=== PATIENT | male | born 1970 ===

== ENCOUNTER 2020-02-15 18:03 | Inpatient (IN) | payer MEDICAID ==
[~2020-02-15] VITALS: Ht 180.3 cm; Wt 127.4 kg
[2020-02-15 18:05] VITALS: BP 149/76; PULSE 84
--- NOTE | 2020-02-15 18:25 | NUR ---
PT IS RESTING IN HIS BED AT THIS TIME. VITAL SIGNS REMAIN STABLE UPON ADMISSION. PT DENIES PAIN OR DISCOMFORT AT THIS TIME. SOME SOB ON EXERTION. CALL LIGHT WITHIN REACH, NO FURTHER CONCERNS.
[2020-02-15] MEDS ORDERED: CORDARONE200 MG/TAB PO (18:31)
[2020-02-15] MEDS ORDERED: BUMEX 1MG TA1 MG/TA1 PO (18:32)
[2020-02-15] MEDS ORDERED: ASPIRIN 32325 MG/TAB PO (18:32)
[2020-02-15] MEDS ORDERED: COREG 3.123.125 MG/T PO (18:33)
[2020-02-15] MEDS ORDERED: GLUCOPHAGE500 MG/TAB PO (18:34)
[2020-02-15] MEDS ORDERED: FLOMAX 0.40.4 MG/CAP PO (18:35)
[2020-02-15] MEDS ORDERED: ZOCOR 10MG10 MG PO (18:36)
[2020-02-15] MEDS ORDERED: ALDACTONE50 MG PO (18:37)
[2020-02-15] MEDS ORDERED: COZAAR 50MG50 MG/TAB PO (18:42)
[2020-02-15] MEDS ORDERED: XARELTO15 MG PO (18:43)
[2020-02-15 19:53] VITALS: BP 142/68; PULSE 82; TEMP 98.6
[2020-02-15 21:28] LABS: C-REACTIVE PROTEIN 1.3 mg/dL (0.0-0.9); CREATINE KINASE 218 U/L (55-170); MAGNESIUM 2.3 mg/dL (1.6-2.3)
--- NOTE | 2020-02-15 21:29 | NUR ---
Collected UA. Pt has voided well since [facility].
--- NOTE | 2020-02-15 21:30 | NUR ---
PT ASSISTED TO CHAIR AT BEDSIDE. REPORTS HE SLEEPS IN A RECLINER AT HOME. IS ALERT AND ORIENTED X4. HAS SL TO LEFT AC WITHOUT REDNESS OR SWELLING. WEARING OXYGEN AT 1L/NC. LEFT SIDE WEAKNESS FROM OLD CVA.
[2020-02-15 21:38] LABS: TROPONIN-I < 0.012 ng/mL (0.000-0.035)
[2020-02-15 21:52] LABS: COLLECTION METHOD CLEAN CATCH
[2020-02-15 21:57] LABS: PH 6 (5-8); SQUAMOUS EPITHELIAL None Seen /hpf; URINE APPEARANCE Clear; URINE BACTERIA None Seen /hpf; URINE BILIRUBIN Negative (NEGATIVE); URINE BLOOD Negative (NEGATIVE); URINE COLOR Straw; URINE GLUCOSE Negative (NEGATIVE); URINE KETONE Negative (NEGATIVE); URINE LEUKOCYTE ESTERASE Negative (NEGATIVE); URINE NITRATE Negative (NEGATIVE); URINE PROTEIN(semi-quant) Negative (NEGATIVE); URINE RBC 0-2 /hpf
[2020-02-15 22:32] VITALS: BP 147/64; PULSE 88; TEMP 97.7
--- NOTE | 2020-02-15 22:40 | NUR ---
INITIATED PRBC TRANSFUSION AT THIS TIME. LEFT AC SITE FLUSHES WELL, NO REDNESS OR SWELLING. LEIGHA BUTT AT BEDSIDE.
[2020-02-15 22:55] VITALS: BP 122/57; PULSE 82; TEMP 98.8
[2020-02-15 23:13] VITALS: BP 148/60; PULSE 80; TEMP 98.2
[2020-02-15 23:43] VITALS: BP 138/75; PULSE 83; TEMP 98.5
[2020-02-16] VITALS (19 sets, daily range): BP systolic 117–148; BP diastolic 61–84; PULSE 66–98; TEMP 97.6–99.2
[2020-02-16 01:32] LABS: CREATINE KINASE 195 U/L (55-170)
[2020-02-16 01:46] LABS: TROPONIN-I < 0.012 ng/mL (0.000-0.035)
[2020-02-16 03:17] LABS: HEMATOCRIT 20.1 % (42.0-52.0)
[2020-02-16 03:18] LABS: HEMOGLOBIN 5.5 g/dl (13.5-18.0)
--- NOTE | 2020-02-16 03:30 | NUR ---
NOTIFIED LEIGHA BUTT OF PT'S HGB 5.5. NEW ORDER FOR ANOTHER UNIT OF PRBC'S.
--- NOTE | 2020-02-16 07:00 | NUR ---
PT SITTING UP IN RECLINER AT BEDSIDE. IS ALERT AND ORIENTED. IS NPO. USING URINAL AT BEDSIDE.
--- NOTE | 2020-02-16 08:50 | NUR ---
Patient sitting up in recliner. Alert and oriented x 3. Assessment complete. Denies pain at this time. Tele in place. Blood transfusion started per orders. Denies further needs at this time.
[2020-02-16 09:09] LABS: BASO % 0.6 % (0.0-2.0); EOS # 0.1 (0.0-0.7); EOS % 2.2 % (0-4.0); GRAN # 3.8 (1.4-6.5); GRAN % 77.2 % (42.2-75.2); LYMPH # 0.5 (1.2-3.4); LYMPH % 9.9 % (20.0-51.0); MEAN CELL VOLUME 76 fl (80.0-100.0); MEAN CORPUSCULAR HGB CONC 28 g/dl (33.0-37.0); MONO # 0.5 (0.1-0.6); MONO % 9.7 % (1.7-9.3); PLATELET COUNT 195 K/mm3 (130-400); RED BLOOD COUNT 2.53 M/mm3 (4.20-5.60); REDCELL DISTRIBUTION WIDTH-CV 17.8 % (11.5-14.5)
[2020-02-16 09:11] LABS: HEMATOCRIT 19.2 % (42.0-52.0); MEAN CORPUSCULAR HEMOGLOBIN 21 pg (27.0-31.0)
[2020-02-16 09:13] LABS: HEMOGLOBIN 5.4 g/dl (13.5-18.0)
[2020-02-16 09:15] LABS: ANION GAP 10 mmol/L (7-16); BLOOD UREA NITROGEN 13 mg/dL (9-20); CALCIUM 8.3 mg/dL (8.4-10.2); CARBON DIOXIDE 27 mmol/L (22-30); CHLORIDE 103 mmol/L (98-107); CREATININE, serum 1.08 (0.66-1.25); GLUCOSE 91 mg/dL (74-106); POTASSIUM 3.9 mmol/L (3.4-5.0); SODIUM 140 mmol/L (137-145)
[2020-02-16 09:24] LABS: CREATINE KINASE 222 U/L (55-170)
[2020-02-16 09:38] LABS: TROPONIN-I < 0.012 ng/mL (0.000-0.035)
--- NOTE | 2020-02-16 10:58 | NUR ---
MAXIMO met with the patient to discuss discharge plan. The patient lives alone in [place]. He reports independence with ADLs and has a walker. The patient's primary care provider is Inga Landon APRN at the [facility] and he receives his medications from [facility]. The patient does not have a DPOA-HC, but he was interested in completing one. The patient designated his cousin, Yue Diehl (ph#[phone]). MAXIMO and HOT KETTLE TENDERDrew, witnessed the patient's signature. MAXIMO provided the patient with the original and some copies. MAXIMO placed a copy in the patient's chart. Yue also lives in [place]. The patient plans to return home upon discharge. He is currently on 2 liters of oxygen. MAXIMO to continue to follow.
--- NOTE | 2020-02-16 11:12 | NUR ---
First visit from the bevel polisher. No needs right now.
[2020-02-16 13:02] LABS: HEMATOCRIT 20.5 % (42.0-52.0); HEMOGLOBIN 5.8 g/dl (13.5-18.0)
[2020-02-16 13:06] LABS: INR 1.5 (0.8-3.0); PROTHROMBIN TIME 17.2 SECONDS (9.7-12.8)
[2020-02-16 14:07] LABS: BILIRUBIN,DIRECT 0.2 mg/dL (0.0-0.4)
[2020-02-16 14:10] LABS: IRON,SERUM 20 ug/dL (35-150)
[2020-02-16 14:20] LABS: TOTAL IRON BINDING CAPACITY 416 ug/dL (261-462)
[2020-02-16 18:19] LABS: HEMATOCRIT 24.1 % (42.0-52.0); HEMOGLOBIN 6.9 g/dl (13.5-18.0)
--- NOTE | 2020-02-16 18:31 | NUR ---
Notified Gladys of hemoglobin
--- NOTE | 2020-02-16 19:11 | NUR ---
Patient has done well thoughout the day has been up in recliner today, napping between disturbances. Has recieved 2 units PRBC through the day. Denies further needs at this time. Reported off to manager night.
--- NOTE | 2020-02-16 21:00 | NUR ---
Pt. sitting up in chair at this time. Pt. is A&OX3, assessment complete. INT to lt. ac patent. Pt. requests a shower to night with assist. Pt. denies further needs, call light within reach.
[2020-02-16 23:19] LABS: FOLATE (FOLIC ACID) 5.9 ng/mL (7.0-31.4)
[2020-02-17] VITALS (13 sets, daily range): BP systolic 101–137; BP diastolic 50–77; PULSE 62–74; TEMP 97.4–98.6
--- NOTE | 2020-02-17 00:19 | NUR ---
Blood transfusion started at this time. Vitals stable. Pt. educated on transfusion reactions. Pt. voices understanding. Will remain with pt. for 15 minutes.
--- NOTE | 2020-02-17 00:35 | NUR ---
First 15 minutes of transfusion complete. Pt. denies any transfusion reactions. Vitals remain stable.
--- NOTE | 2020-02-17 02:44 | NUR ---
Blood transfusion complete at this time. Pt. tolerated well.
[2020-02-17 06:03] LABS: MEAN CELL VOLUME 76 fl (80.0-100.0); MEAN CORPUSCULAR HGB CONC 30 g/dl (33.0-37.0); PLATELET COUNT 194 K/mm3 (130-400); RED BLOOD COUNT 3.19 M/mm3 (4.20-5.60); REDCELL DISTRIBUTION WIDTH-CV 17.5 % (11.5-14.5)
[2020-02-17 06:13] LABS: CALCIUM 8.7 mg/dL (8.4-10.2); CREATININE, serum 1.13 (0.66-1.25); POTASSIUM 3.8 mmol/L (3.4-5.0)
[2020-02-17 06:29] LABS: HEMATOCRIT 24.1 % (42.0-52.0); HEMOGLOBIN 7.3 g/dl (13.5-18.0); MEAN CORPUSCULAR HEMOGLOBIN 23 pg (27.0-31.0)
--- NOTE | 2020-02-17 06:50 | NUR ---
Sitting up in chair watching TV. Alert and oriented x4. Denies pain. Bottom is red, no open areas noted. Patient has 2+ edema to bilat lower extremities. Skin is pale. Patient is ready to have procedure today, consent for thoracentesis on chart. Patient denies needs at this time.
--- NOTE | 2020-02-17 08:29 | NUR ---
Bc here to take patient via stretcher to endoscopy lab for thoracentesis.
--- NOTE | 2020-02-17 09:43 | NUR ---
Patient back to room from thoracentesis via stretcher. Patient requests to sit in chair as this is where he is most comfortable. Patient ambulates from stretcher, around bed, to the chair. Gait slow and steady. Patient did use walker. Provided water, broth, and jello. Bandaid to right mid back CDI. Patient denies needs at this time.
--- NOTE | 2020-02-17 10:15 | NUR ---
Patient up in room with OT. Feels well at this time. Denies needs.
[2020-02-17 11:13] LABS: PLEURAL FLUID RBC 1000 /mm3 (0-0); PLEURAL FLUID WBC 54 /mm3
[2020-02-17 11:16] LABS: PLEURAL FLUID APPEARANCE CLEAR; PLEURAL FLUID COLOR YELLOW
[2020-02-17 11:19] LABS: GLUCOSE,PLEURAL FLUID 97 mg/dL; TOTAL PROTEIN,PLEURAL FLUID 4.2 gm/dL
--- NOTE | 2020-02-17 12:36 | NUR ---
Review consent for EGD and Colonoscopy with the patient. Denies questions and signs consent. Consent placed in chart. Patient denies needs at this time.
--- NOTE | 2020-02-17 16:37 | NUR ---
Patient sitting up in chair watching TV. Denies pain. Discuss bowel prep and process. IV to left AC almost pulled all the way out. Restart IV at this time to left hand, patient tolerates without difficulty, previous IV dc'd with all intact and site covered with 2x2 and tape. Patient begins bowel prep at this time. Will call when needs to get to bathroom. Denies additional needs at this time.
--- NOTE | 2020-02-17 20:30 | NUR ---
PT UP IN RECLINER CHAIR AT BEDSIDE. IS DRINKING PREP FOR PROCEDURE TOMORROW. IS ALERT AND ORIENTED X4. HAS SL TO LEFT HAND, FLUSHES WELL AND HS MEDS GIVEN WITHOUT PROBLEM THRU THIS. IS AWARE HE WILL GET SECOND DOSE OF BOWEL PREP STARTING AT 0600.
--- NOTE | 2020-02-18 02:30 | NUR ---
PT HAS LARGE LOOSE STOOL, BOWEL PREP IS WORKING.
[2020-02-18 04:51] VITALS: BP 109/56; PULSE 70; TEMP 97.6
--- NOTE | 2020-02-18 05:52 | NUR ---
UP TO BATHROOM, LOOSE BROWN STOOL NOTED. WILL BEGIN SECOND DOSING OF BOWEL PREP AT THIS TIME.
[2020-02-18 07:26] VITALS: BP 112/59; PULSE 69; TEMP 98
[2020-02-18 08:44] LABS: MEAN CELL VOLUME 78 fl (80.0-100.0); MEAN CORPUSCULAR HGB CONC 29 g/dl (33.0-37.0); MEAN PLATELET VOLUME 11.3 fl (7.4-10.4); PLATELET COUNT 195 K/mm3 (130-400); RED BLOOD COUNT 3.24 M/mm3 (4.20-5.60); REDCELL DISTRIBUTION WIDTH-CV 18.6 % (11.5-14.5)
[2020-02-18 08:49] LABS: HEMATOCRIT 25.2 % (42.0-52.0); HEMOGLOBIN 7.3 g/dl (13.5-18.0); MEAN CORPUSCULAR HEMOGLOBIN 23 pg (27.0-31.0)
[2020-02-18 09:00] LABS: CALCIUM 8.4 mg/dL (8.4-10.2); CREATININE, serum 1.23 (0.66-1.25); POTASSIUM 3.9 mmol/L (3.4-5.0)
--- NOTE | 2020-02-18 10:39 | NUR ---
Patient alert and oriented, answers questions appropriately. See assessment. Patient consuming bowel prep at this time. No c/o at this time.
[2020-02-18 11:36] VITALS: BP 116/62; PULSE 63; TEMP 97.8
--- NOTE | 2020-02-18 15:24 | NUR ---
Patient to endo at 1515.
[2020-02-18 16:36] VITALS: BP 97/54; PULSE 67; TEMP 97.6
--- NOTE | 2020-02-18 20:30 | NUR ---
PT IN RECLINER CHAIR AT BEDSIDE. IS ALERT AND ORIENTED X4. HAS SL TO LEFT HAND, FLUSHES WELL WITH IV MEDS. LUNGS DIMINISHED THROUGHOUT. BILATERAL LOWER LEG EDEMA CONTINUES, 2-3+. VOIDING PER URINAL. HAS REDDENED COCCYX AND DISCOLORED BUTTOCKS FROM SITTING IN CHAIR. PT DOES NOT SLEEP IN A BED AT HOME EITHER. DOES REPOSITION SELF IN CHAIR AND HAS EXTRA CHAIR CUSHION IN PLACE.
[2020-02-18 20:48] VITALS: BP 104/60; PULSE 73; TEMP 98.3
[2020-02-19] VITALS (7 sets, daily range): BP systolic 101–141; BP diastolic 51–75; PULSE 67–80; TEMP 98.1–98.7
--- NOTE | 2020-02-19 04:00 | NUR ---
PT HAS REMAINED IN RECLINER THIS SHIFT. NO NEEDS AT THIS TIME.
[2020-02-19 07:25] LABS: MEAN CELL VOLUME 79 fl (80.0-100.0); MEAN CORPUSCULAR HGB CONC 29 g/dl (33.0-37.0); MEAN PLATELET VOLUME 10.8 fl (7.4-10.4); PLATELET COUNT 193 K/mm3 (130-400); RED BLOOD COUNT 3.21 M/mm3 (4.20-5.60); REDCELL DISTRIBUTION WIDTH-CV 19.2 % (11.5-14.5)
[2020-02-19 07:35] LABS: HEMATOCRIT 25.3 % (42.0-52.0); HEMOGLOBIN 7.4 g/dl (13.5-18.0); MEAN CORPUSCULAR HEMOGLOBIN 23 pg (27.0-31.0)
[2020-02-19 07:49] LABS: CALCIUM 8.2 mg/dL (8.4-10.2); CREATININE, serum 1.97 (0.66-1.25); POTASSIUM 3.7 mmol/L (3.4-5.0)
--- NOTE | 2020-02-19 14:35 | NUR ---
SW met with the patient to follow up and review d/c plan. The patient states that he is doing well. He was hopeful he could go home today. The patient reports that he has no concerns about returning home and that his cousin will transport him home. No additional needs at this time.
--- NOTE | 2020-02-19 20:45 | NUR ---
Pt. sitting up in chair at this time. Pt. is A&OX3, assessment complete. INT to lt. hand patent. Pt. denies pain or other needs, call light within reach.
[2020-02-20 04:00] VITALS: BP 119/54; PULSE 74; TEMP 99
--- NOTE | 2020-02-20 07:08 | NUR ---
Sitting up in chair watching TV. Denies pain. 3+ edema noted to bilat lower extremities. Patient says that he hopes he is able to go home today. Denies needs at this time.
[2020-02-20 07:12] LABS: MEAN CELL VOLUME 81 fl (80.0-100.0); MEAN CORPUSCULAR HGB CONC 28 g/dl (33.0-37.0); PLATELET COUNT 192 K/mm3 (130-400); RED BLOOD COUNT 3.25 M/mm3 (4.20-5.60); REDCELL DISTRIBUTION WIDTH-CV 20.3 % (11.5-14.5)
[2020-02-20 07:18] LABS: HEMATOCRIT 26.2 % (42.0-52.0); HEMOGLOBIN 7.4 g/dl (13.5-18.0); MEAN CORPUSCULAR HEMOGLOBIN 23 pg (27.0-31.0)
[2020-02-20 07:24] LABS: CALCIUM 8.6 mg/dL (8.4-10.2); CREATININE, serum 1.52 (0.66-1.25)
[2020-02-20 07:58] VITALS: BP 113/78; PULSE 77; TEMP 98.4
[2020-02-20] MEDS ORDERED: FERRO-TIME325 MG PO (09:08)
[2020-02-20] MEDS ORDERED: ASPIRIN E.C. 8181 MG PO (09:09)
[2020-02-20] MEDS ORDERED: FOLIC ACID 11 MG/TA1 PO (09:09)
[2020-02-20] MEDS ORDERED: BUMEX 1MG TA1 MG/TA1 PO (09:09)
--- NOTE | 2020-02-20 10:08 | NUR ---
Review all discharge instructions with the patient. Patient denies questions and signs discharge paperwork. Discharge packet provided to the patient. Patient says that his ride will not be here to get him until the afternoon. Explain this is fine and when they come to get him they will go to the ER entrance. Patient denies additional needs at this time.
--- NOTE | 2020-02-20 11:23 | NUR ---
Patient sitting up in chair. Has already gotten dressed. Ride will come this afternoon to pick him up. Denies pain or additional needs at this time.
[2020-02-20 11:46] VITALS: BP 129/64; PULSE 68; TEMP 98.7
--- NOTE | 2020-02-20 13:33 | NUR ---
Patient calls and says that his ride is almost at ER entrance to pick him up. Patient assisted out to POV via wheel chair with all belongings.
== END 2020-02-20 13:33 | disposition home or self-care (01) | DRG 811 ==
LOC: JCC 18:03
PROVIDERS: Internal Medicine Pulmonary Disease; Nurse Practitioner Family; Physician Assistant; ADMIT Hospitalist
PROC: 0W993ZZ Drainage of Right Pleural Cavity, Percutaneous Approach (ICD-10-PCS; principal; 2020-02-17 08:00)
DX: D50.9 Iron deficiency anemia, unspecified (principal); J96.01 Acute respiratory failure with hypoxia; I50.23 Acute on chronic systolic (congestive) heart failure; J90 Pleural effusion, not elsewhere classified; R18.8 Other ascites; N17.9 Acute kidney failure, unspecified; Z68.41 Body mass index [BMI] 40.0-44.9, adult; I11.0 Hypertensive heart disease with heart failure; D52.9 Folate deficiency anemia, unspecified; E78.5 Hyperlipidemia, unspecified; I48.91 Unspecified atrial fibrillation; N40.0 Benign prostatic hyperplasia without lower urinary tract symptoms; E11.9 Type 2 diabetes mellitus without complications; K80.20 Calculus of gallbladder without cholecystitis without obstruction; I44.0 Atrioventricular block, first degree; K57.90 Diverticulosis of intestine, part unspecified, without perforation or abscess without bleeding; K44.9 Diaphragmatic hernia without obstruction or gangrene; K63.5 Polyp of colon; Z86.73 Personal history of transient ischemic attack (TIA), and cerebral infarction without residual deficits; Z79.01 Long term (current) use of anticoagulants; Z79.84 Long term (current) use of oral hypoglycemic drugs
CPT/HCPCS: 99223-AI; 99231-AI; 99232-AI; 99233-AI; A9284; C9113; J2405; J2704; J2765; J2916; J7042; P9016